=== PATIENT | female | born 1970 | race Caucasian/White ===

== ENCOUNTER 2019-09-08 23:25 | Emergency (ER) | payer OTHER ==
[~2019-09-08] VITALS: Ht 162.6 cm; Wt 73.0 kg
--- NOTE | 2019-09-08 23:36 | NUR ---
BIB [facility], PER EMT PT FOUND ON SIDEWALK NEXT DOOR TO HER HOUSE, A&OX4, GCS-15. ABRASION TO FOREHEAD, NOSE AND RIGHT LIP, + ETOH ODOR, HR-94, SPO2-94% R/A, B/P-129/85, FSBS-120. ASSISTED PT INTO GOWN, MONITORS APPLIED, SIDERAILS UP X2, CALL LIGHT WITHIN REACH
--- NOTE | 2019-09-08 23:37 | NUR ---
PT TO CT
[2019-09-08] MEDS ORDERED: HYDR-3237 PO (23:42)
[2019-09-08] MEDS ORDERED: SULF1TAB24 PO (23:42)
[2019-09-08] MEDS ORDERED: LEVO25TA4 PO (23:42)
[2019-09-08] MEDS ORDERED: IBUP-1222 PO (23:42)
--- NOTE | 2019-09-09 01:07 | NUR ---
PT RESTING ON GURNEY WITH EYES CLOSED, NAD, EQUAL CHEST RISE/FLL OBSERVED, MONITORS IN PLACE, CALL LIGHT WITHIN REACH
[2019-09-09] MEDS ORDERED: NEOSPORIN OINT. PKT 1 PACKET ONE (01:38)
--- NOTE | 2019-09-09 01:42 | NUR ---
EMT AT PT'S BEDSIDE FOR WOUND CLEANING AND YEISON
[2019-09-09 02:31] VITALS: BP 98/62
--- NOTE | 2019-09-09 02:31 | NUR ---
PT RESTING ON GURNEY WITH EYES CLOSED, NADN, MONITORS IN PLACE, CALL LIGHT WITHIN REACH
--- NOTE | 2019-09-09 03:01 | NUR ---
PT ALERT AND ANSWERS ALL QUESTIONS APPROPRIATLY, ABLE TO AMBULATE IN HALLWAY WITHOUT DIFFICULTY
== END 2019-09-09 03:16 | disposition home or self-care (01) ==
LOC: ED 09-09 01:26
DX: S06.0X0A Concussion without loss of consciousness, initial encounter (principal); S02.2XXA Fracture of nasal bones, initial encounter for closed fracture; S00.81XA Abrasion of other part of head, initial encounter; E03.9 Hypothyroidism, unspecified; F10.120 Alcohol abuse with intoxication, uncomplicated; Y90.0 Blood alcohol level of less than 20 mg/100 ml; W01.0XXA Fall on same level from slipping, tripping and stumbling without subsequent striking against object, initial encounter; Y93.89 Activity, other specified; Y92.009 Unspecified place in unspecified non-institutional (private) residence as the place of occurrence of the external cause; Y99.8 Other external cause status
CPT/HCPCS: 70450; 72125; 93005; 99284